=== PATIENT | female | born 1975 | race Caucasian/White ===

== ENCOUNTER 2018-05-05 15:27 | Outpatient (CLI) | payer BC | END 2018-05-05 23:59 | disposition home or self-care (01) | LOC: RAD 15:27 | PROVIDERS: ATTEND Surgery | DX: K76.0 Fatty (change of) liver, not elsewhere classified (principal); Z90.49 Acquired absence of other specified parts of digestive tract | CPT/HCPCS: 76700 ==

== ENCOUNTER 2018-05-29 12:08 | Day surgery (SDC) | payer BC ==
[2018-05-29] VITALS (8 sets, daily range): BP systolic 109–136; BP diastolic 73–93
[~2018-05-29] VITALS: Ht 165.1 cm; Wt 81.8 kg
[2018-05-29] MEDS ORDERED: NO HOME MEDS (12:26)
[2018-05-29] MEDS ORDERED: fentaNYL/PF 50MCG/1 ML 2ML syringe ONE (13:18)
[2018-05-29] MEDS ORDERED: LIDOcaine Viscous 15ml cup ONE (13:19)
[2018-05-29] MEDS ORDERED: iohexol 300 MG/1 ML 50ml polymer ONE (13:19)
[2018-05-29] MEDS ORDERED: glucagon, human recombinant 1mg kit ONE (13:19)
[2018-05-29] MEDS ORDERED: diphenhydrAMINE 50 mg/ml inj ONE (13:19)
[2018-05-29] MEDS ORDERED: MIDAZolam 5mg/5ml vial ONE (13:19)
== END 2018-05-29 15:41 | disposition home or self-care (01) ==
LOC: GI LAB 12:08
PROVIDERS: ATTEND Internal Medicine Gastroenterology
DX: Z46.59 Encounter for fitting and adjustment of other gastrointestinal appliance and device (principal); K83.1 Obstruction of bile duct; K21.9 Gastro-esophageal reflux disease without esophagitis; Z96.89 Presence of other specified functional implants; Z88.5 Allergy status to narcotic agent; Z91.040 Latex allergy status; Z91.048 Other nonmedicinal substance allergy status; Z90.49 Acquired absence of other specified parts of digestive tract; Z98.890 Other specified postprocedural states
CPT/HCPCS: 43275; 74328; 99152; J2250; J3010; J7030; Q9967; G0500; J1200; J1610

== ENCOUNTER 2022-03-01 15:23 | Outpatient (CLI) | payer MEDICAID ==
[~2022-03-01 15:23] MED LIST: NO HOME MEDS; PANT-47 PO
== END 2022-03-01 23:59 | disposition home or self-care (01) ==
LOC: RAD 15:23
PROVIDERS: ATTEND Psychiatry & Neurology Neurology
DX: R44.2 Other hallucinations (principal)
CPT/HCPCS: 95816

== ENCOUNTER 2024-08-20 17:39 | Emergency (ER) | payer MEDICAID ==
[~2024-08-20] VITALS: Ht 162.6 cm; Wt 81.8 kg
[2024-08-20 18:17] VITALS: TEMP 98.1
[2024-08-20] MEDS: aspirin 81mg tab.chew PO ONE (18:35)
[2024-08-20] MEDS: nitroGLYCERIN 1gm ointment UD TP ONE (18:35)
[2024-08-20 18:48] LABS: BASOPHILS % (AUTO) 0.4 % (0-1); EOSINOPHILS # (AUTO) 0.1 X10'3 (0-0.9); EOSINOPHILS % (AUTO) 0.8 % (0-6); HEMATOCRIT 40.2 % (35.0-45.0); HEMOGLOBIN 13.6 g/dl (12.0-16.0); LYMPHOCYTES # (AUTO) 1.6 X10'3 (1.1-4.8); MEAN CORPUSCULAR HEMOGLOBIN 29.4 PG (27.0-31.0); MEAN CORPUSCULAR HGB CONC 33.8 g/dL (33.0-36.5); MEAN PLATELET VOLUME 8.8 FL (7.4-10.4); MONOCYTES # (AUTO) 0.6 X10'3 (0-0.9); MONOCYTES % (AUTO) 7.7 % (2-12); NEUTROPHILS # (AUTO) 5.7 X10'3 (1.8-7.7); NEUTROPHILS % (AUTO) 71.1 % (42-75); PLATELET COUNT 215 X10'3 (140-440); RED BLOOD COUNT 4.62 X10'6 (4.20-5.60)
[2024-08-20 19:08] LABS: ALBUMIN 3.7 G/DL (3.4-5.0); ANION GAP 9 (8-16); BLOOD UREA NITROGEN 19 MG/DL (7-18); BUN/CREATININE RATIO 20.4 (10.0-20.0); CALCIUM 9.2 MG/DL (8.5-10.1); CHLORIDE 103 MMOL/L (99-107); CREATININE 0.93 MG/DL (0.40-0.90); GLUCOSE 117 MG/DL (70-104); MAGNESIUM 1.8 MG/DL (1.5-2.4); POTASSIUM 3.8 MMOL/L (3.5-5.1); PRO BRAIN NATRIURETIC PEPTIDE < 30 PG/ML (0-125); SODIUM 136 MMOL/L (135-145); TOTAL CARBON DIOXIDE 23.8 MMOL/L (24-32); eCRCL 62 ML/MIN; eGFR 64 ML/MIN
[2024-08-20 21:30] VITALS: BP 139/94; PULSE 93; RESP 16; O2SAT 98
== END 2024-08-20 21:46 | disposition home or self-care (01) ==
LOC: ER 17:39
DX: R07.9 Chest pain, unspecified (principal); Z88.8 Allergy status to other drugs, medicaments and biological substances; Z91.040 Latex allergy status; Z79.899 Other long term (current) drug therapy; Z90.49 Acquired absence of other specified parts of digestive tract
CPT/HCPCS: 36415; 71045; 80048; 83735; 83880; 84484; 85025; 93005; 99285

== ENCOUNTER 2025-04-09 19:23 | Emergency (ER) | payer MEDICAID ==
[~2025-04-09] VITALS: Ht 162.6 cm; Wt 78.8 kg
[2025-04-09 20:02] VITALS: TEMP 98.8
[2025-04-09 20:20] LABS: BASOPHILS # (AUTO) 0.1 X10'3 (0-0.2); BASOPHILS % (AUTO) 0.7 % (0-1); EOSINOPHILS # (AUTO) 0.2 X10'3 (0-0.9); EOSINOPHILS % (AUTO) 2.4 % (0-6); HEMATOCRIT 41.5 % (35.0-45.0); LYMPHOCYTES % (AUTO) 23.3 % (21-51); MEAN CORPUSCULAR HEMOGLOBIN 27.6 PG (27.0-31.0); MEAN CORPUSCULAR HGB CONC 33.8 g/dL (33.0-36.5); MEAN CORPUSCULAR VOLUME 81.9 FL (78-98); MEAN PLATELET VOLUME 8.8 FL (7.4-10.4); MONOCYTES # (AUTO) 0.7 X10'3 (0-0.9); MONOCYTES % (AUTO) 8.7 % (2-12); NEUTROPHILS # (AUTO) 5.5 X10'3 (1.8-7.7); NEUTROPHILS % (AUTO) 64.9 % (42-75); PLATELET COUNT 227 X10'3 (140-440); RED BLOOD COUNT 5.07 X10'6 (4.20-5.60); RED CELL DISTRIBUTION WIDTH 15.1 % (11.5-14.5); WHITE BLOOD COUNT 8.5 X10'3 (4.5-11.0)
[2025-04-09 20:40] LABS: ALANINE AMINOTRANSFERASE 27 U/L (12-78); ALBUMIN 3.9 G/DL (3.4-5.0); ALKALINE PHOSPHATASE 64 IU/L (46-116); ANION GAP 7 (8-16); ASPARTATE AMINO TRANSFERASE 17 U/L (10-37); BILIRUBIN,TOTAL 0.8 MG/DL (0.1-1.0); BLOOD UREA NITROGEN 11 MG/DL (7-18); BUN/CREATININE RATIO 10.2 (10.0-20.0); CALCIUM 9.2 MG/DL (8.5-10.1); CHLORIDE 102 MMOL/L (99-107); CREATININE 1.08 MG/DL (0.40-0.90); GLUCOSE 115 MG/DL (70-104); LIPASE 51 U/L (16-77); SODIUM 140 MMOL/L (135-145); TOTAL CARBON DIOXIDE 30.9 MMOL/L (24-32); TOTAL PROTEIN 7.8 G/DL (6.4-8.2); eCRCL 53 ML/MIN; eGFR 53 ML/MIN
[2025-04-09 22:19] LABS: URINE HCG NEGATIVE (NEG)
[2025-04-09 22:21] LABS: BILIRUBIN,URINE NEGATIVE (Neg); CLARITY,URINE CLEAR (Clear); COLOR,URINE YELLOW (Yellow); GLUCOSE, URINE >=1000 mg/dl (Neg); KETONES,URINE NEGATIVE (Neg); LEUKOCYTE ESTERASE ,URINE NEGATIVE (Neg); NITRITES, URINE POSITIVE (Neg); OCCULT BLOOD,URINE NEGATIVE (Neg); PROTEIN,URINE NEGATIVE (Neg); UROBILINOGEN,URINE 0.2 E.U/dL (0.2-1.0)
[2025-04-09 22:27] LABS: UA COLLECTION TYPE CLN CATCH MIDSTREAM
[2025-04-09 22:29] LABS: BACTERIA,URINE 4+ /HPF (Neg); RBC,URINE 0-2 /HPF (0-2); SQUAMOUS EPITHELIAL CELL,UR FEW /LPF (FEW); WBC,URINE 0-4 /HPF (0-4)
[2025-04-09] MEDS ORDERED: CIPR-202 PO (23:03)
--- NOTE | 2025-04-09 23:04 | Physician Documentation ---
History of Present Illness ~ Chief Complaint: Abdominal Pain Stated Complaint: BACK PAIN Time Seen by MD: 22:47 Primary Medical Doctor: Khadar Mode of Arrival: POV HPI Patient presents to the emergency room with some pelvic discomfort along with some back pain. Denies dysuria or prior instances. Patient endorses fevers. Patient taken ibuprofen and Tylenol with minimal relief. No history of kidney stones. Medication Reconciliation Allergies: Coded Allergies: codeine (Verified Allergy, Intermediate, hives, 04/09/25) latex (Verified Allergy, Intermediate, hives, 04/09/25) Uncoded Allergies: surgical glue (Adverse Reaction, Intermediate, skin breakdown, 05/29/18) Scheduled Pantoprazole Sodium (PROTONIX tablet), 1 TAB PO DAILY Miscellaneous Medications Home Med List (No Home Medications), (Reported) Past Medical History Past Surgical History: cholecystectomy Alcohol Use: None Drug Use: none Review of Systems ROS All review of systems negative except as per HPI Physical Exam Vital Signs: Temperature: 98.8, Source: Oral, Heart Rate: 119, Respiratory Rate : 16, BP: 131/99, Pulse Oximetry: 98, Weight: 78.800 Oxygen Flow Rate: 0 Physical Exam General: Patient is awake, alert, oriented x4 in no acute distress and well appearing.~ Head: Normocephalic and atraumatic. Eyes: Conjunctival normal. EOMI. PERRL. ENT: Mucous membranes moist. Neck: Supple, trachea is midline. Chest: Clear to auscultation bilaterally without rales, rhonchi, or wheezes. There is no accessory muscle use or retractions. Cardiac: Tachycardic and regular at 111 without murmurs, gallops, or rubs. Abd: Soft, nondistended, mild suprapubic tenderness without peritonitis Back: Left-sided CVA present Progress Results/Orders Results/Orders Orders - EZEQUIEL ZAVALA MD Cult Urine + [address] (04/09/25 22:29) Completed Orders - EZEQUIEL ZAVALA MD Hcg, Ur Ql (04/09/25 20:08) Cbc/Diff (04/09/25 20:08) BMP (04/09/25 20:08) Lipase (04/09/25 20:08) CMP (04/09/25 20:08) Ua W/Microscopic, Cult If Ind (04/09/25 21:54) Ceftriaxone Im Kit W/Lidocaine (Rocephin (04/09/25 22:55) Ondansetron Disint. Tablet (Zofran Odt T (04/09/25 22:55) Vital Signs 04/09/25 04/09/25 04/09/25 20:02 22:30 22:40 Temp 98.8 Pulse 111 119 Resp 16 16 B/P (MAP) 149/110 131/99 (110) Pulse Ox 98 98 O2 Flow Rate 0 0 Laboratory Tests Test 04/09/25 20:14 04/09/25 21:54 White Blood Count 8.5 Red Blood Count 5.07 Hemoglobin 14.0 Hematocrit 41.5 Mean Corpuscular Volume 81.9 Mean Corpuscular Hemoglobin 27.6 Mean Corpuscular Hemoglobin Concent 33.8 Red Cell Distribution Width 15.1 H Platelet Count 227 Mean Platelet Volume 8.8 Neutrophils (%) (Auto) 64.9 Lymphocytes (%) (Auto) 23.3 Monocytes (%) (Auto) 8.7 Eosinophils (%) (Auto) 2.4 Basophils (%) (Auto) 0.7 Neutrophils # (Auto) 5.5 Lymphocytes # (Auto) 2.0 Monocytes # (Auto) 0.7 Eosinophils # (Auto) 0.2 Basophils # (Auto) 0.1 CBC Comment Sodium Level 140 Potassium Level 4.0 Chloride Level 102 Carbon Dioxide Level 30.9 Anion Gap 7 L Blood Urea Nitrogen 11 Creatinine 1.08 H Estimated GFR/1.73 m2 53 BUN/Creatinine Ratio 10.2 Glucose Level 115 H Calcium Level 9.2 Total Bilirubin 0.8 Aspartate Amino Transf (AST/SGOT) 17 Alanine Aminotransferase (ALT/SGPT) 27 Alkaline Phosphatase 64 Total Protein 7.8 Albumin 3.9 Globulin 3.9 Albumin/Globulin Ratio 1.0 L Lipase 51 Chemistry Comments Urine Specimen Description Cln catch midstream Urine Color Yellow Urine Clarity Clear Urine pH 6.0 Urine Specific [place] 1.015 Urine Protein Negative Urine Glucose (UA) >=1000 H Urine Ketones Negative Urine Occult Blood Negative Urine Nitrite Positive H Urine Bilirubin Negative Urine Urobilinogen 0.2 Urine Leukocyte Esterase Negative Urine RBC 0-2 Urine WBC 0-4 Urine Squamous Epithelial Cells Few Urine Bacteria 4+ Urine Culture Indicated Indicated Volume Urine Centrifuged 10 ml Urine HCG, Qualitative Negative Urine Comment Medical Decision Making Findings Patient presents to the emergency room with pelvic pain and flank pain as per HPI. Differentials include but are not limited to pyelonephritis acute aortic pathology kidney stone musculoskeletal pain therefore emergent labs ordered. No elevation of white blood cell count and I do not believe patient is septic. Patient does have a urinary tract infection. No significant red blood cells and urine and he had not feel she is suffering from kidney stone and I do not feel she requires a CT scan. Antibiotics initiated in ER precautions reviewed. Consideration of aortic pathology however given urinalysis along with pelvic pain he had not feel this requires investigation Departure Disposition: HOME / SELF CARE / HOMELESS Impression: Primary Impression: Pyelonephritis Condition: Stable Discharge Instructions: Pyelonephritis, Adult Referrals: NO PRIMARY CARE PROVIDER (PCP) Prescriptions Ciprofloxacin HCl (Ciprofloxacin HCl) 500 Mg Tab 1 TAB PO Q12H for 10 Days, #20 TAB Prov: EZEQUIEL ZAVALA MD 04/09/25 Education Educated: Patient Educated regarding: diagnosis, treatment, need for follow up Signature Scribe Signature: No scribe Attestation: The note accurately reflects work and decisions made by me.Ezequiel Zavala MD 04/09/25 23:04 EZEQUIEL ZAVALA MD April 09, 2025 23:04
[2025-04-09] MEDS: CefTRIAXone 1000mg IM Kit (w/lidocaine diluent) IM ONE (23:11)
[2025-04-09] MEDS: ondansetron 4mg rapidly disintigrating tab PO ONE (23:18)
[2025-04-09] MEDS: ibuprofen tablet 400 MG TABLET PO ONE (23:18)
[2025-04-09] MEDS: ciprofloxacin 250mg tablet PO ONE (23:19)
[2025-04-09] MEDS: acetaminophen 325mg tablet PO ONE (23:19)
[2025-04-09 23:35] VITALS: BP 130/101; PULSE 116; RESP 14; O2SAT 97
== END 2025-04-09 23:36 | disposition home or self-care (01) ==
LOC: ER 19:24
DX: N12 Tubulo-interstitial nephritis, not specified as acute or chronic (principal); Z88.5 Allergy status to narcotic agent; Z90.49 Acquired absence of other specified parts of digestive tract
CPT/HCPCS: 36415; 80053; 81001; 81025; 83690; 85025; 87088; 87186; 96372; 99284; J0696; 87077

== ENCOUNTER 2025-06-26 13:15 | Outpatient (CLI) | payer MEDICAID ==
--- NOTE | 2025-06-26 15:30 | RADIOLOGY REPORT ---
CLINICAL HISTORY: PAIN IN RIGHT KNEE JOINT TECHNIQUE: 3 views of the right knee were obtained. WID: COMPARISON: None FINDINGS: Normal mineralization and alignment. The joint spaces are preserved. There is no acute fracture. Ther e is mild tricompartment osteoarthritis with medial and lateral compartment mild joint space narrowin g and osteophyte formation. No joint effusion. IMPRESSION: No acute fracture or traumatic malalignment. Mild medial and lateral compartment osteoarthritis with mild joint space narrowing.
--- NOTE | 2025-06-26 15:55 | RADIOLOGY REPORT ---
CLINICAL INDICATION: PAIN IN RIGHT THUMB TECHNIQUE: DI FINGER(S) Comparison: None FINDINGS/IMPRESSION: : Minor Subluxation of the 1st MCP joint with slight ulnar subluxation of the proximal phalanx relative to the metacarpal. No acute fracture. 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
--- NOTE | 2025-06-28 10:14 | RADIOLOGY REPORT ---
Patient: ANGELINE ANGELES Medical Record: [id number] : 1975, Age: 50 Sex: Female Location: [facility] Patient Status: REG CLI Service Date/Time: 06/26/25/ 1329 Ordering Physician: CORBY HERNANDEZ DO Exam: KNEE, COMP 4 VW MIN CLINICAL HISTORY: PAIN IN RIGHT KNEE JOINT TECHNIQUE: 3 views of the right knee were obtained. WID: COMPARISON: None FINDINGS: Normal mineralization and alignment. The joint spaces are preserved. There is no acute fracture. There is mild tricompartment osteoarthritis with medial and lateral compartment mild joint space narrowing and osteophyte formation. No joint effusion. IMPRESSION: No acute fracture or traumatic malalignment. Mild medial and lateral compartment osteoarthritis with mild joint space narrowing. Electronically Signed by:DELORIS CUELLO MD Date & Time: 06/26/25 1527 Dictated by: DELORIS CUELLO MD Dictation date and time: 06/26/25 1330 Primary Care Provider: NO PRIMARY CARE PROVIDER cc: CORBY HERNANDEZ DO ~ MTDD
[2025-06-28 13:17] LABS: ANTINUCLEAR ANTIBODIES Negative (Negative)
[2025-06-29 13:12] LABS: CCP IGG ANTIBODIES 15 units (0-19)
== END 2025-06-26 23:59 | disposition home or self-care (01) ==
LOC: RAD 13:15
PROVIDERS: ATTEND Family Medicine
DX: S63.111A Subluxation of metacarpophalangeal joint of right thumb, initial encounter (principal); M17.11 Unilateral primary osteoarthritis, right knee; M25.861 Other specified joint disorders, right knee; M25.761 Osteophyte, right knee; M18.11 Unilateral primary osteoarthritis of first carpometacarpal joint, right hand; M25.561 Pain in right knee; M79.644 Pain in right finger(s); R76.8 Other specified abnormal immunological findings in serum; X58.XXXA Exposure to other specified factors, initial encounter; Y93.89 Activity, other specified; Y92.89 Other specified places as the place of occurrence of the external cause; Y99.8 Other external cause status
CPT/HCPCS: 36415; 73140; 73562; 73564; 85651; 86038; 86200; 86431